=== PATIENT | male | born 1940 | race Caucasian/White ===

== ENCOUNTER → 2017-04-18 | Outpatient (CLI) | payer MEDICARE, OTHER ==
[~2017-04-18] MED LIST: ASPIRIN CHILDRE81 M1 PO; BENTYL10 MG PO; DIAZEPAM10 M1 PO; DIAZEPAM10 MG PO; DICLOFENAC50 MG PO; FLOMAX 0.4MG C0.4 MG PO; LISINOPRIL20 MG PO; LOMOTIL 2.5MG.2.5 MG PO; PANTOPRAZOLE40 M1 PO; PHENERGAN 25MG.25 M1 PO; PROMETHAZINE25 M1 PO; VITAMIN D31000 I1 PO
[2017-04-18 13:36] LABS: HEMOGLOBIN 14.7 g/dL (14.1-18.0); LYMPH # 1.8 K/mm3 (0.7-4.5)
[2017-04-18 15:02] LABS: BUN 22 mg/dL (7-18)
[2017-04-18 15:04] LABS: GFR (ESTIMATED) 59 ML/MIN (>60)
== END ==
LOC: RT 13:13 → LAB 13:13
PROVIDERS: Otolaryngology
DX: D48.5 Neoplasm of uncertain behavior of skin (principal); Z01.818 Encounter for other preprocedural examination

== ENCOUNTER 2017-04-24 06:06 | Day surgery (SDC) | payer MEDICARE, OTHER ==
[~2017-04-24] VITALS: Ht 175.3 cm; Wt 99.8 kg
[2017-04-24 10:20] VITALS: BP 149/94
--- NOTE | 2017-04-24 10:41 | Operative Note ---
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 The lesion on the LEFT eyebrow measured 1.5 cm. Perilesional area was infiltrated with 2 percent lidocaine containing epinephrine. The markup was incised and the lesion was excised and submitted. Bleeding was stopped with bipolar cautery. Flaps were elevated and a tissue rearrangement Z-plasty repair was done with interrupted 4-0 nylon sutures. The lesion on the left ear was marked out, measured 1.2 cm. The perilesional area was infiltrated with 2 percent lidocaine containing epinephrine. The lesion was marked out and the markup was incised and the lesion was excised. Bleeding was stopped with bipolar cautery. Tissue rearrangement geometric plastic repair was done with interrupted 4-0 nylon sutures. The lesion on the RIGHT forearm was prepped and draped. The perilesional area was infiltrated with 2 percent lidocaine containing epinephrine and the lesion was marked out the markup measured 1.5 cm. The markup was incised the lesion was excised and submitted. Bleeding was stopped with bipolar cautery. Flaps were elevated and a geometric plastic repair was done with a tissue rearrangement technique. The lesion on the scalp was infiltrated with 2 percent lidocaine containing epinephrine. Lesion measured 2.5 cm. A cryosurgical ablation was done with the cryosurgery instruments. Dermabond dressings were applied to all of the sites as well as Band-Aids type dressings. Blood loss for all the procedure was less than 10 mL. The patient tolerated procedure well and was sent to recovery in good general condition. A total of 8 mL of lidocaine were used for all the procedures. EBL (ml): 2 Specimens obtained: Same as above Complications: None at 1048
== END 2017-04-24 09:35 | disposition home or self-care (01) ==
LOC: SDC 06:06
PROVIDERS: Otolaryngology
PROC: 0HB3XZX Excision of Left Ear Skin, External Approach, Diagnostic (ICD-10-PCS; 2017-04-24)
PROC: 0HBDXZX Excision of Right Lower Arm Skin, External Approach, Diagnostic (ICD-10-PCS; 2017-04-24)
PROC: 0H5 Skin and Breast, Destruction (ICD-10-PCS; 2017-04-24)
PROC: 0HB1XZX Excision of Face Skin, External Approach, Diagnostic (ICD-10-PCS; principal; 2017-04-24 07:30)
DX: D04.61 Carcinoma in situ of skin of right upper limb, including shoulder (principal); L82.1 Other seborrheic keratosis; D04.39 Carcinoma in situ of skin of other parts of face; L57.0 Actinic keratosis